=== PATIENT | female | born 1985 | race African-American/Black ===

== ENCOUNTER 2022-03-20 23:52 | Emergency (ER) | payer MEDICAID, OTHER ==
[~2022-03-20] VITALS: Ht 160 cm; Wt 59.3 kg
[~2022-03-20 23:52] MED LIST: NOCURR
[2022-03-21 02:12] LABS: BASOPHILS % (AUTO) 0.1 % (0.0-2.0); EOSINOPHILS % (AUTO) 0 % (1.0-6.0); HEMATOCRIT 26.7 % (36-46); HEMOGLOBIN 7.9 g/dL (12.0-16.0); LYMPHOCYTES # (AUTO) 0.9 K/uL (1.0-4.8); LYMPHOCYTES % (AUTO) 5.4 % (22.0-44.0); MEAN CORPUSCULAR HEMOGLOBIN 22.4 pg (26.0-34.0); MEAN CORPUSCULAR HGB CONC 29.7 G/dL (31.0-37.0); MEAN CORPUSCULAR VOLUME 76 fL (80-100); MONOCYTES % (AUTO) 6.2 % (2.0-9.0); NEUTROPHILS # (AUTO) 14.5 K/uL (1.8-7.7); PLATELET COUNT (AUTO) 462 K/uL (150-450); RED BLOOD CELL COUNT(AUTO) 3.53 MIL/uL (4.00-5.20)
[2022-03-21 02:15] LABS: NEUTROPHILS % (AUTO) 88.3 % (40.0-70.0)
[2022-03-21 02:23] LABS: ANION GAP 12 mmol/L (8-16); CALCIUM, TOTAL 9.9 mg/dL (8.8-10.5); CARBON DIOXIDE 25 mmol/L (22-29); CHLORIDE 100 mmol/L (98-107); CREATININE 1.28 mg/dL (0.60-1.30); GLUCOSE,RANDOM 149 mg/dL (70-110); POTASSIUM 3.7 mmol/L (3.5-5.1); SODIUM SERUM 137 mmol/L (136-145); UREA NITROGEN, BLOOD 12 mg/dL (7-18)
[2022-03-21 02:25] LABS: GLOMERULAR FILTR. RATE CALC 57 mL/min (>60)
[2022-03-21 02:49] LABS: ALANINE AMINOTRANSFERASE 21 U/L (12-78); ALBUMIN 4.4 g/dL (3.4-5.0); ALKALINE PHOSPHATASE 78 U/L (46-116); ASPARTATE AMINOTRANSFERASE 32 U/L (15-37); BILIRUBIN,TOTAL 0.6 mg/dL (0.1-1.0); CREATINE KINASE, TOTAL ONLY 780 U/L (26-192); HCG,QUANTITATIVE < 1 mIU/mL (0-6); TOTAL PROTEIN, SERUM 8.9 g/dL (6.4-8.2)
[2022-03-21] MEDS ORDERED: SODIUM CHLORIDE 0.9% 1,000 ML IV ONE ×2 (03:00→04:30)
[2022-03-21] MEDS ORDERED: NiCARDipine HCL 25 MG in DEXTROSE 5%-WATER 240 ML IV PRN (08:00)
[2022-03-21] MEDS: NiCARDipine HCL 25 MG in DEXTROSE 5%-WATER 240 ML IV PRN ×3 (08:20→15:37)
[2022-03-21] MEDS ORDERED: IOHEXOL 350 MG/ML 100 ML VIAL ONE (08:47)
[2022-03-21] MEDS ORDERED: SODIUM CHLORIDE 0.9% 100 ML ONE (08:48)
[2022-03-21] MEDS ORDERED: MORPHINE SULFATE 4 MG/ML SYRINGE IVP ONE (14:00)
[2022-03-21 14:35] LABS: COVID AG,FIA SOURCE NASAL SWAB
[2022-03-21 15:37] VITALS: BP 157/90
== END 2022-03-21 17:10 | disposition short-term general hospital (02) ==
LOC: EMS 23:53
DX: I60.9 Nontraumatic subarachnoid hemorrhage, unspecified (principal); R53.1 Weakness; D72.829 Elevated white blood cell count, unspecified; D64.9 Anemia, unspecified; I62.9 Nontraumatic intracranial hemorrhage, unspecified; R03.0 Elevated blood-pressure reading, without diagnosis of hypertension; F10.20 Alcohol dependence, uncomplicated; F17.210 Nicotine dependence, cigarettes, uncomplicated; Z20.822 Contact with and (suspected) exposure to COVID-19
CPT/HCPCS: 99291; 87426; 80053; 82140; 82550; 84702; 85025; 36415; 70496; 96365; 96366; 71045; 96361; 96375; 82962; 81025; 93005; 70450; G0480; J2270; J3490; Q9967; J7060; J7030; J7050; 51701; 96374; 99292